=== PATIENT | female | born 1960 | race African-American/Black ===

== ENCOUNTER 2018-11-03 15:02 | Emergency (ER) | payer MEDICAID, OTHER ==
[~2018-11-03] VITALS: Ht 165.1 cm; Wt 68.0 kg
[~2018-11-03 15:02] MED LIST: MONT10TA23 PO
[2018-11-03] MEDS ORDERED: ONDANSETRON HCL 4 MG/2 ML VIAL ONE (15:32)
[2018-11-03] MEDS ORDERED: ONDANSETRON HCL 4 MG/2 ML VIAL IV ONE (15:45)
[2018-11-03 16:23] LABS: Basophils # (auto) 0 uL; Basophils % (auto) 0.4 % (0.0-2.0); Eosinophils # (auto) 0.5 uL; Eosinophils % (auto) 6.7 % (0.0-7.0); Hematocrit 38.3 % (36.0-46.0); Hemoglobin 12.9 g/dL (12.2-16.2); Lymphocytes # (auto) 2.9 uL; Lymphocytes % (auto) 35.5 % (10.0-50.0); Mean Corpuscular Hemoglobin 33.6 pg (28.0-32.0); Mean Corpuscular Hgb Conc. 33.6 g/dL (32.0-36.0); Monocytes # (auto) 0.5 uL; Neutrophils # (auto) 4.2 uL; Neutrophils % (auto) 51.4 % (37.0-80.0); Nucleated Red Blood Cells % 0.1 %; Platelet Count (auto) 168 10^3/uL (140-450); Red Blood Cells 3.83 10^6/uL (4.0-5.20); White Blood Cell 8.2 10^3/uL (4.4-10.8)
[2018-11-03 16:38] LABS: Albumin 3.7 g/dL (3.4-5.0); Anion Gap 11 (5-15); Blood Urea Nitrogen 46 mg/dL (7-18); Calcium 8.5 mg/dL (8.5-10.1); Carbon Dioxide 24 mmol/L (21-32); Chloride 103 mmol/L (98-107); Glucose 95 mg/dL (74-106); Potassium 4.4 mmol/L (3.5-5.1); Sodium 138 mmol/L (136-145)
[2018-11-03 16:44] LABS: Alanine Aminotransferase 8 U/L (13-56); Alkaline Phosphatase 78 U/L (45-117); Aspartate Aminotransferase 14 U/L (15-37); BUN/Creatinine Ratio 24.1; Bilirubin, Total 0.6 mg/dL (0.2-1.0); GFR African American 35 mL/min; GFR Non-African American 29 mL/min; Total Protein 7.4 g/dL (6.4-8.2)
[2018-11-03] MEDS ORDERED: SODIUM CHLORIDE 0.9% 1,000 ML IV ONE (19:00)
[2018-11-03 19:36] LABS: INR 1.04 (0.9-1.15); Partial Thromboplastin Time 27.7 sec (23.64-32.05)
[2018-11-04 01:40] VITALS: BP 108/46
== END 2018-11-04 01:57 | disposition short-term general hospital (02) ==
LOC: EDBD 15:02 → ER 15:06
DX: I12.9 Hypertensive chronic kidney disease with stage 1 through stage 4 chronic kidney disease, or unspecified chronic kidney disease (principal); E11.22 Type 2 diabetes mellitus with diabetic chronic kidney disease; N18.3 Chronic kidney disease, stage 3 (moderate); G20 Parkinson's disease; K21.9 Gastro-esophageal reflux disease without esophagitis
CPT/HCPCS: 36415; 70450; 71045; 80053; 82962; 83735; 84484; 85025; 85610; 85730; 94761; 96361; 96374; 99285; J2405; J7030

== ENCOUNTER 2022-05-19 10:46 | Inpatient (IN) | payer OTHER, MEDICAID ==
[~2022-05-19] VITALS: Ht 165.1 cm; Wt 64.8 kg
[2022-05-19 11:16] LABS: Hematocrit 41.6 % (36.0-46.0); Hemoglobin 13.8 g/dL (12.2-16.2); Mean Corpuscular Hemoglobin 33.2 pg (28.0-32.0); Mean Corpuscular Volume 100.6 fL (80.0-100.0); Red Blood Cells 4.14 10^6/uL (4.0-5.20); Red Cell Distribution Width 14.8 % (11.8-14.3); White Blood Cell 6.9 10^3/uL (4.4-10.8)
[2022-05-19 11:35] LABS: Albumin 3.9 g/dL (3.4-5.0); Calcium 8.7 mg/dL (8.5-10.1); Potassium 4.2 mmol/L (3.5-5.1)
[2022-05-19 11:38] LABS: BUN/Creatinine Ratio 22.7; Bilirubin, Total 0.3 mg/dL (0.2-1.0); Total Protein 7.4 g/dL (6.4-8.2)
[2022-05-19 12:01] LABS: Basophils % (manual) 0 (0.0-2.0); Blast Cells 0; Metamyelocytes % 0; Myelocytes % 0; Promyelocytes % 0; Reactive Lymphocytes 0
[2022-05-19 13:48] LABS: Band Neutrophils % (manual) 7; Eosinophils % (manual) 7 (0-7); Lymphocytes % (manual) 26 (10.0-50.0); Monocytes % (manual) 3 (0-12)
[2022-05-19] MEDS ORDERED: DEXTROSE 10% 1,000 ML IV ONE ×2 (14:36→14:45)
[2022-05-19 15:43] LABS: Urine Bacteria FEW /hpf (None Seen); Urine Blood TRACE /uL (Negative); Urine Specific Gravity 1.016 (1.001-1.035); Urine WBC 3328 /hpf (0 - 5); Urine WBC Clumps PRESENT /hpf (None Seen)
[2022-05-19] MEDS ORDERED: FURO40TA4 PO (16:47)
[2022-05-19] MEDS ORDERED: INSU1INJ4 SC (16:47)
[2022-05-19] MEDS ORDERED: OMEP-260 PO (16:47)
[2022-05-19] MEDS ORDERED: ALLO300T2 PO (16:47)
[2022-05-19] MEDS ORDERED: FAMO20TA10 PO (16:47)
[2022-05-19] MEDS ORDERED: TRIA37.55 PO (16:47)
[2022-05-19] MEDS ORDERED: CHOL200031 PO (16:47)
[2022-05-19] MEDS ORDERED: ATOR40TA52 PO (16:47)
[2022-05-19] MEDS ORDERED: GAB100C PO (16:47)
[2022-05-19] MEDS ORDERED: GLIP10TA9 PO (16:47)
[2022-05-19] MEDS ORDERED: ESCI-34 PO (16:47)
[2022-05-19] MEDS ORDERED: MELO1TAB73 PO (16:47)
[2022-05-19] MEDS ORDERED: TERB250T66 PO (16:47)
[2022-05-19] MEDS ORDERED: HYDR-4072 PO (16:47)
[2022-05-19] MEDS ORDERED: CARB25TA79 (16:47)
[2022-05-19] MEDS ORDERED: DEXTROSE (50%) 50ML SYRG IV PRN (17:00)
[2022-05-19] MEDS ORDERED: ONDANSETRON HCL 4 MG/2 ML VIAL IV PRN (17:00)
[2022-05-19] MEDS ORDERED: DOCUSATE SOD 100 MG CAP PO PRN (17:00)
[2022-05-19] MEDS ORDERED: ACETAMINOPHEN 325 MG TAB PO PRN (17:00)
[2022-05-19] MEDS: ACCU-CHEK COMFORT CURVE STRIP VI SCH ×2 (18:36→22:26)
[2022-05-20] MEDS: ACCU-CHEK COMFORT CURVE STRIP VI SCH ×6 (02:21→22:01)
[2022-05-20] MEDS: HYDROcodone-ACET 5/325MG TAB PO PRN (04:02)
[2022-05-20 05:23] LABS: Basophils # (auto) 0.1 10 ^3/uL (0-0.2); Basophils % (auto) 0.5 % (0.0-2.0); Eosinophils # (auto) 0.7 10 ^3/uL (0-0.8); Eosinophils % (auto) 7.6 % (0.0-7.0); Hematocrit 36.1 % (36.0-46.0); Hemoglobin 12.2 g/dL (12.2-16.2); Lymphocytes # (auto) 2.6 10 ^3/uL (0.4-5.4); Lymphocytes % (auto) 26.9 % (10.0-50.0); Mean Corpuscular Hemoglobin 33.4 pg (28.0-32.0); Mean Corpuscular Hgb Conc. 33.8 g/dL (32.0-36.0); Mean Corpuscular Volume 98.8 fL (80.0-100.0); Monocytes # (auto) 0.6 10 ^3/uL (0-1.3); Monocytes % (auto) 6.3 % (0.0-12.0); Neutrophils # (auto) 5.6 10 ^3/uL (1.6-8.6); Neutrophils % (auto) 58.7 % (37.0-80.0); Red Blood Cells 3.65 10^6/uL (4.0-5.20); Red Cell Distribution Width 15.2 % (11.8-14.3); White Blood Cell 9.6 10^3/uL (4.4-10.8)
[2022-05-20 05:35] LABS: Albumin 3.5 g/dL (3.4-5.0); Calcium 8.6 mg/dL (8.5-10.1)
[2022-05-20 05:39] LABS: Bilirubin, Total 0.5 mg/dL (0.2-1.0); Total Protein 6.9 g/dL (6.4-8.2)
[2022-05-20] MEDS ORDERED: DEXTROSE 10% 1,000 ML IV ONE (06:45)
[2022-05-20] MEDS ORDERED: ALBUTEROL MEDNEB 2.5 mg/3ml NEB ONE ×2 (07:38→21:54)
[2022-05-20] MEDS: ALBUTEROL SULF 2.5 MG/0.5ML(0.5%) NEB SOLN NEB PRN ×2 (07:55→22:11)
[2022-05-20] MEDS: IPRATROPIUM BROM 0.5 MG/2.5ML INH SOL NEB PRN ×2 (07:55→22:11)
[2022-05-20 08:24] VITALS: BP 108/74
[2022-05-20 09:00] VITALS: BP 139/65
[2022-05-20] MEDS: PANTOPRAZOLE 40 MG/10 ML VIAL INJ IV SCH (09:08)
[2022-05-20] MEDS ORDERED: ATORVASTATIN 20 MG TAB PO SCH (10:00)
[2022-05-20] MEDS ORDERED: FUROSEMIDE 40 MG TAB PO SCH (10:00)
[2022-05-20] MEDS ORDERED: ALLOPURINOL 300 MG TAB PO SCH (10:00)
[2022-05-20] MEDS ORDERED: ALLOPURINOL 100 MG TAB PO SCH (10:00)
[2022-05-20 10:50] VITALS: BP 139/65
[2022-05-20] MEDS ORDERED: ERTAPENEM SOD INJ 1 GM in SODIUM CHL 0.9% 50 ML IV ONE (11:15)
[2022-05-20] MEDS: Glucerna Carbsteady SHAKE Vanilla 8oz PO SCH ×2 (12:20→19:11)
[2022-05-20 13:00] VITALS: BP 120/62
[2022-05-20] MEDS: SODIUM CHLORIDE 0.9% 1,000 ML IV SCH (14:01)
[2022-05-20] MEDS: CIPROFLOXACIN 0.3%OPTH(EYE) SOL 5ML LEFTEYE SCH ×3 (14:02→22:01)
[2022-05-20 17:00] VITALS: BP 169/71
[2022-05-20] MEDS ORDERED: hydrALAZINE HCL 20 MG/ML VL IV PRN (19:30)
[2022-05-20 22:00] VITALS: BP 138/56
[2022-05-21] MEDS: SODIUM CHLORIDE 0.9% 1,000 ML IV SCH ×2 (00:35→10:14)
[2022-05-21] MEDS: ACCU-CHEK COMFORT CURVE STRIP VI SCH ×5 (01:41→21:29)
[2022-05-21] MEDS: CIPROFLOXACIN 0.3%OPTH(EYE) SOL 5ML LEFTEYE SCH ×6 (02:04→21:28)
[2022-05-21 04:44] VITALS: BP 137/60
[2022-05-21] MEDS: ALBUTEROL SULF 2.5 MG/0.5ML(0.5%) NEB SOLN NEB SCH ×5 (05:51→22:11)
[2022-05-21] MEDS: IPRATROPIUM BROM 0.5 MG/2.5ML INH SOL NEB SCH ×5 (05:51→22:11)
[2022-05-21 06:03] LABS: INR 0.99 (0.9-1.15); Partial Thromboplastin Time 28.1 sec (24.6-33.4)
[2022-05-21 06:04] LABS: Basophils # (auto) 0 10 ^3/uL (0-0.2); Eosinophils # (auto) 0.6 10 ^3/uL (0-0.8); Monocytes # (auto) 0.6 10 ^3/uL (0-1.3)
[2022-05-21 06:06] LABS: Basophils % (auto) 0.4 % (0.0-2.0); Eosinophils % (auto) 7.6 % (0.0-7.0); Hematocrit 34.6 % (36.0-46.0); Hemoglobin 11.9 g/dL (12.2-16.2); Lymphocytes # (auto) 2.4 10 ^3/uL (0.4-5.4); Lymphocytes % (auto) 29.3 % (10.0-50.0); Mean Corpuscular Hemoglobin 33.5 pg (28.0-32.0); Mean Corpuscular Hgb Conc. 34.4 g/dL (32.0-36.0); Mean Corpuscular Volume 97.5 fL (80.0-100.0); Monocytes % (auto) 7.4 % (0.0-12.0); Neutrophils # (auto) 4.5 10 ^3/uL (1.6-8.6); Neutrophils % (auto) 55.3 % (37.0-80.0); Nucleated Red Blood Cells % 0.2 %; Red Blood Cells 3.55 10^6/uL (4.0-5.20); White Blood Cell 8.1 10^3/uL (4.4-10.8)
[2022-05-21 06:09] LABS: Albumin 3.4 g/dL (3.4-5.0); Potassium 3.6 mmol/L (3.5-5.1)
[2022-05-21 06:18] LABS: BUN/Creatinine Ratio 24.2; Bilirubin, Total 0.9 mg/dL (0.2-1.0); Calcium 8.7 mg/dL (8.5-10.1); Total Protein 6.5 g/dL (6.4-8.2)
[2022-05-21 09:00] VITALS: BP 134/69
[2022-05-21] MEDS ORDERED: ALBUTEROL MEDNEB 2.5 mg/3ml NEB ONE ×4 (09:34→21:53)
[2022-05-21] MEDS: Glucerna Carbsteady SHAKE Vanilla 8oz PO SCH ×3 (09:55→17:56)
[2022-05-21] MEDS: PANTOPRAZOLE 40 MG/10 ML VIAL INJ IV SCH (09:55)
[2022-05-21] MEDS: ERTAPENEM SOD INJ 1 GM in SODIUM CHL 0.9% 50 ML IV SCH (09:55)
[2022-05-21] MEDS: HYDROcodone-ACET 5/325MG TAB PO PRN ×2 (10:13→18:36)
[2022-05-21] MEDS ORDERED: CARBIDOPA W LEVODOPA 25/100mg TABLET PO ONE (10:15)
[2022-05-21] MEDS ORDERED: FAMOTIDINE 20 MG TAB PO ONE (10:15)
[2022-05-21 13:00] VITALS: BP 117/63
[2022-05-21] MEDS: CARBIDOPA W LEVODOPA 25/100mg TABLET PO SCH ×2 (13:54→21:29)
[2022-05-21] MEDS: guaiFENesin-DM 100/10mg/5ml SYR PO PRN (14:06)
[2022-05-21 17:00] VITALS: BP 125/64
[2022-05-21] MEDS: MONTELUKAST SODIUM 10 MG TAB PO SCH (21:29)
[2022-05-21 21:58] VITALS: BP 124/58
[2022-05-22] MEDS: guaiFENesin-DM 100/10mg/5ml SYR PO PRN ×2 (01:02→17:07)
[2022-05-22] MEDS ORDERED: ALBUTEROL MEDNEB 2.5 mg/3ml NEB ONE ×3 (02:09→10:25)
[2022-05-22] MEDS: CIPROFLOXACIN 0.3%OPTH(EYE) SOL 5ML LEFTEYE SCH ×6 (02:13→22:18)
[2022-05-22] MEDS: SODIUM CHLORIDE 0.9% 1,000 ML IV SCH ×2 (03:15→17:07)
[2022-05-22] MEDS: ALBUTEROL SULF 2.5 MG/0.5ML(0.5%) NEB SOLN NEB SCH ×3 (03:17→11:17)
[2022-05-22] MEDS: IPRATROPIUM BROM 0.5 MG/2.5ML INH SOL NEB SCH ×6 (03:17→21:59)
[2022-05-22 05:00] VITALS: BP 124/56
[2022-05-22 05:56] LABS: Basophils # (auto) 0.1 10 ^3/uL (0-0.2); Basophils % (auto) 0.8 % (0.0-2.0); Eosinophils # (auto) 0.9 10 ^3/uL (0-0.8); Eosinophils % (auto) 11.1 % (0.0-7.0); Hematocrit 31.1 % (36.0-46.0); Hemoglobin 10.6 g/dL (12.2-16.2); Lymphocytes # (auto) 2.6 10 ^3/uL (0.4-5.4); Lymphocytes % (auto) 30.8 % (10.0-50.0); Mean Corpuscular Hemoglobin 33.6 pg (28.0-32.0); Mean Corpuscular Volume 98.8 fL (80.0-100.0); Monocytes # (auto) 0.6 10 ^3/uL (0-1.3); Monocytes % (auto) 7.4 % (0.0-12.0); Neutrophils # (auto) 4.3 10 ^3/uL (1.6-8.6); Neutrophils % (auto) 49.9 % (37.0-80.0); Nucleated Red Blood Cells % 0.1 %; Red Blood Cells 3.15 10^6/uL (4.0-5.20); Red Cell Distribution Width 15.2 % (11.8-14.3); White Blood Cell 8.6 10^3/uL (4.4-10.8)
[2022-05-22 06:16] LABS: BUN/Creatinine Ratio 21.9; Calcium 8.7 mg/dL (8.5-10.1)
[2022-05-22] MEDS: CARBIDOPA W LEVODOPA 25/100mg TABLET PO SCH ×3 (06:31→22:18)
[2022-05-22] MEDS: ACCU-CHEK COMFORT CURVE STRIP VI SCH ×4 (06:31→22:18)
[2022-05-22] MEDS: ERTAPENEM SOD INJ 1 GM in SODIUM CHL 0.9% 50 ML IV SCH (07:51)
[2022-05-22 08:00] VITALS: BP 127/71
[2022-05-22 08:20] VITALS: BP 127/71
[2022-05-22] MEDS ORDERED: FAMOTIDINE 20 MG TAB PO SCH (10:00)
[2022-05-22] MEDS ORDERED: CITALOPRAM HYDROBR 20 MG TAB PO ONE (11:00)
[2022-05-22] MEDS ORDERED: LORazepam 0.5 MG TAB PO PRN (11:00)
[2022-05-22] MEDS ORDERED: LORazepam 2MG/ML-1ML VIAL IV ONE (11:00)
[2022-05-22] MEDS ORDERED: ALBUTEROL MEDNEB 2.5 mg/3ml NEB NEB PRN (11:30)
[2022-05-22] MEDS: Glucerna Carbsteady SHAKE Vanilla 8oz PO SCH ×3 (12:06→19:32)
[2022-05-22 12:40] VITALS: BP 136/67
[2022-05-22] MEDS: GABAPENTIN 100 MG CAP PO SCH ×2 (13:31→22:18)
[2022-05-22] MEDS: HYDROcodone-ACET 5/325MG TAB PO PRN ×2 (13:31→20:02)
[2022-05-22] MEDS: ALBUTEROL MEDNEB 2.5 mg/3ml NEB NEB SCH ×3 (14:00→21:59)
[2022-05-22 16:43] VITALS: BP 136/56
[2022-05-22] MEDS: MONTELUKAST SODIUM 10 MG TAB PO SCH (22:18)
[2022-05-23 00:44] VITALS: BP 117/48
[2022-05-23] MEDS ORDERED: levoFLOXacin 500MG 100 ML IV SCH (10:00)
[2022-05-23] MEDS ORDERED: CITALOPRAM HYDROBR 20 MG TAB PO SCH (10:00)
== END 2022-05-23 00:30 | disposition short-term general hospital (02) | DRG 871 ==
LOC: ER 10:46 → OVERFLOW 17:05 → WEST WING 05-20 08:58 → EAST 05-20 19:36
PROVIDERS: ADMIT Nurse Practitioner Family; ATTEND Internal Medicine
DX: A41.59 Other Gram-negative sepsis (principal); G92.8 Other toxic encephalopathy; N17.0 Acute kidney failure with tubular necrosis; N39.0 Urinary tract infection, site not specified; E11.649 Type 2 diabetes mellitus with hypoglycemia without coma; G20 Parkinson's disease; I10 Essential (primary) hypertension; Z20.822 Contact with and (suspected) exposure to COVID-19; J45.909 Unspecified asthma, uncomplicated; K21.9 Gastro-esophageal reflux disease without esophagitis; H10.9 Unspecified conjunctivitis; E78.5 Hyperlipidemia, unspecified; F32.A Depression, unspecified; M10.9 Gout, unspecified; Z79.4 Long term (current) use of insulin; Z90.710 Acquired absence of both cervix and uterus
CPT/HCPCS: 36415; 70450; 71045; 80048; 80053; 81001; 82962; 83036; 84484; 84550; 85007; 85025; 85027; 85610; 85730; 87086; 87088; 87186; 87426; 93005; 94640; 97163; 99291; C9113; G0378; J1335